=== PATIENT | female | born 1955 | race Caucasian/White ===

== ENCOUNTER 2020-01-31 06:08 | Inpatient (IN) | payer MEDICAID ==
[2020-01-31] MEDS: Nozin Nasal Sanitizer NASBOTH SCH ×3 (06:34→20:12)
[2020-01-31] MEDS ORDERED: Povidone-Iodine 10% Soln 118.25 ML Bottle ONE (06:47)
[2020-01-31] MEDS ORDERED: ceFAZolin 2 GM in Premix Bag 1 BAG IV ONE (07:15)
[2020-01-31] MEDS ORDERED: ceFAZolin 2 GM in Sodium Chloride 0.9% 100 ML IV ONE (07:15)
[2020-01-31] MEDS ORDERED: Lactated Ringers 1,000 ML IV SCH (07:15)
[2020-01-31] MEDS ORDERED: fentaNYL 100 MCG/2 ML SDV ONE ×6 (07:22→10:25)
[2020-01-31] MEDS ORDERED: Propofol 200 MG/20 ML SDV ONE ×6 (07:22→09:45)
[2020-01-31] MEDS ORDERED: Midazolam 1 MG/ML 2 ML SDV ONE ×2 (07:22→08:13)
[2020-01-31] MEDS: Tranexamic Acid 1,000 MG in Sodium Chloride 0.9% 50 ML IV ONE ×2 (08:40→13:12)
[2020-01-31] MEDS ORDERED: Lactated Ringers 1,000 ML ONE (08:59)
[2020-01-31] MEDS ORDERED: Labetalol 20 MG/4 ML Syringe ONE (09:22)
[2020-01-31] MEDS ORDERED: Acetaminophen 325 MG Tab PO PRN (10:18)
[2020-01-31] MEDS ORDERED: Morphine 2 MG/ML SYRINGE IVPUSH PRN (10:18)
[2020-01-31] MEDS ORDERED: Allopurinol 100 MG Tab PO PRN (10:24)
[2020-01-31] MEDS ORDERED: Morphine 2 MG/ML SYRINGE IVPUSH ONE (10:24)
[2020-01-31] MEDS ORDERED: Tranexamic Acid 1,000 MG in Sodium Chloride 0.9% 50 ML IV PRN (10:45)
--- NOTE | 2020-01-31 11:01 | CR ---
Knee 1V or 2V Lt CLINICAL HISTORY: Postop FINDINGS: Patient is status post left knee arthroplasty. Components appear well seated. There is intra-articular septations air Impression: Status post recent total left knee arthroplasty which appears intact
[2020-01-31] MEDS ORDERED: hydrOXYzine HCL 100 MG/2 ML SDV IM ONE (11:07)
[2020-01-31] MEDS: Ketorolac 30 MG/ML SDV IVPUSH SCH ×2 (12:06→19:58)
[2020-01-31] MEDS: Sodium Chloride 0.9% 1,000 ML IV SCH ×2 (13:43→20:39)
[2020-01-31] MEDS: ceFAZolin 1 GM in Premix Bag 1 BAG IV SCH ×2 (13:43→21:59)
[2020-01-31] MEDS: Acetaminophen/oxyCODONE 325-5 MG Tab PO PRN ×2 (15:22→19:42)
[2020-01-31] MEDS: Docusate Sodium 100 MG Cap PO SCH (20:14)
[2020-02-01] MEDS: Acetaminophen/oxyCODONE 325-5 MG Tab PO PRN ×4 (00:01→21:09)
[2020-02-01] MEDS: Ketorolac 30 MG/ML SDV IVPUSH SCH ×3 (04:13→20:11)
[2020-02-01] MEDS: ceFAZolin 1 GM in Premix Bag 1 BAG IV SCH (06:10)
[2020-02-01] MEDS: Nozin Nasal Sanitizer NASBOTH SCH ×2 (08:21→20:13)
[2020-02-01] MEDS: Docusate Sodium 100 MG Cap PO SCH ×2 (08:21→20:13)
[2020-02-01] MEDS: Enoxaparin 30 MG/0.3 ML Syringe SUBCUT SCH (08:21)
[2020-02-01] MEDS: Psyllium Husk Powder Sugar Free 5.85 GM Packet PO SCH (08:23)
[2020-02-01] MEDS: Acetaminophen/HYDROcodone 325-5 MG Tab PO PRN ×2 (13:04→17:06)
--- NOTE | 2020-02-01 18:36 | PCM.SURGPN ---
- General Info Date of Service: 02/01/20 Date of Surgery/Procedure: 01/31/20 POD#: 1 Post-Op Diagnosis: Osteoarthritis left knee Functional Status: Reports: Ambulating, Urinating - Review of Systems General: Reports: No Symptoms HEENT: Reports: No Symptoms Pulmonary: Reports: No Symptoms Cardiovascular: Reports: No Symptoms Gastrointestinal: Reports: No Symptoms Genitourinary: Reports: No Symptoms Musculoskeletal: Reports: Joint Pain, Joint Swelling Skin: Reports: No Symptoms Neurological: Reports: No Symptoms Psychiatric: Reports: No Symptoms - Patient Data Vitals - Most Recent: Last Vital Signs Temp 36.5 C 02/01/20 14:59 Pulse 95 02/01/20 14:59 Resp 18 02/01/20 14:59 BP 149/66 H 02/01/20 14:59 Pulse Ox 97 02/01/20 14:59 Weight - Most Recent: 154.221 kg I&O - Last 24 Hours: Intake & Output 02/01/20 02/01/20 02/01/20 06:59 14:59 22:59 Intake Total 1523 1145 940 Output Total 400 700 Balance 1123 445 940 Med Orders - Current: Current Medications Acetaminophen (Tylenol) 650 mg PO Q4H PRN PRN Reason: Pain/Fever Hydrocodone Bitart/Acetaminophen ([place] 325-5 Mg) 2 tab PO Q4H PRN PRN Reason: Pain (mild 1-3) Last Admin: 02/01/20 17:06 Dose: 2 tab Documented by: Allopurinol (Zyloprim) 100 mg PO DAILY PRN PRN Reason: Pain Bandage/Support Products ( Nasal Operations Administrator) 1 applic NASBOTH BID [facility] Last Admin: 02/01/20 08:21 Dose: 1 applic Documented by: Cyclobenzaprine HCl (Flexeril) 10 mg PO TID [facility] Docusate Sodium (Colace) 100 mg PO BID [facility] Last Admin: 02/01/20 08:21 Dose: 100 mg Documented by: Enoxaparin Sodium (Lovenox) 30 mg SUBCUT DAILY [facility] Last Admin: 02/01/20 08:21 Dose: 30 mg Documented by: Sodium Chloride (Normal Saline) 1,000 mls @ 125 mls/hr IV ASDIRECTED [facility] Last Admin: 01/31/20 20:39 Dose: 125 mls/hr Documented by: Ketorolac Tromethamine (Toradol) 30 mg IVPUSH Q8H [facility] Stop: 02/02/20 04:01 Last Admin: 02/01/20 11:26 Dose: 30 mg Documented by: Morphine Sulfate (Morphine) 2 mg IVPUSH Q1H PRN PRN Reason: Breakthrough Pain Oxycodone/Acetaminophen (Percocet 325-5 Mg) 1 - 2 tab PO Q4H PRN PRN Reason: Pain Last Admin: 02/01/20 08:20 Dose: 2 tab Documented by: Psyllium Husk (Metamucil Sugar Free) 1 pkt PO DAILY [facility] Last Admin: 02/01/20 08:23 Dose: 1 pkt Documented by: Discontinued Medications Fentanyl (Sublimaze) Confirm Administered Dose 100 mcg .ROUTE .STK-MED ONE Stop: 01/31/20 07:23 Fentanyl (Sublimaze) Confirm Administered Dose 100 mcg .ROUTE .STK-MED ONE Stop: 01/31/20 08:50 Fentanyl (Sublimaze) Confirm Administered Dose 100 mcg .ROUTE .STK-MED ONE Stop: 01/31/20 08:59 Fentanyl (Sublimaze) Confirm Administered Dose 100 mcg .ROUTE .STK-MED ONE Stop: 01/31/20 10:10 Fentanyl (Sublimaze) Confirm Administered Dose 100 mcg .ROUTE .STK-MED ONE Stop: 01/31/20 10:14 Fentanyl (Sublimaze) Confirm Administered Dose 100 mcg .ROUTE .STK-MED ONE Stop: 01/31/20 10:26 Hydroxyzine HCl (Vistaril) 100 mg IM ONETIME ONE Stop: 01/31/20 11:08 Last Admin: 01/31/20 11:12 Dose: 100 mg Documented by: Lactated Ringer's (Ringers, Lactated) 1,000 mls @ 75 mls/hr IV ASDIRECTED [facility] Last Admin: 01/31/20 07:39 Dose: 75 mls/hr Documented by: Cefazolin Sodium/Dextrose 2 gm (/ Premix) 50 mls @ 100 mls/hr IV ONETIME ONE Stop: 01/31/20 07:44 Last Admin: 01/31/20 07:42 Dose: 100 mls/hr Documented by: Tranexamic Acid 1,000 mg/ (Sodium Chloride) 60 mls @ 240 mls/hr IV ONETIME ONE Stop: 01/31/20 07:59 Last Admin: 01/31/20 13:12 Dose: Not Given Documented by: Tranexamic Acid 1,000 mg/ (Sodium Chloride) 60 mls @ 240 mls/hr IV ASDIRECTED PRN PRN Reason: DOSE 2 IF NEEDED PER PROVIDER Stop: 01/31/20 13:00 Lactated Ringer's (Ringers, Lactated) Confirm Administered Dose 1,000 mls @ as directed .ROUTE .STK-MED ONE Stop: 01/31/20 09:00 Cefazolin Sodium/Dextrose 1 gm (/ Premix) 50 mls @ 100 mls/hr IV Q8H JAYLYN Stop: 02/01/20 06:29 Last Admin: 02/01/20 06:10 Dose: 100 mls/hr Documented by: Labetalol HCl (Normodyne) Confirm Administered Dose 20 mg .ROUTE .STK-MED ONE Stop: 01/31/20 09:23 Midazolam HCl (Versed 1 Mg/Ml) Confirm Administered Dose 2 mg .ROUTE .STK-MED ONE Stop: 01/31/20 07:23 Midazolam HCl (Versed 1 Mg/Ml) Confirm Administered Dose 2 mg .ROUTE .STK-MED ONE Stop: 01/31/20 08:14 Morphine Sulfate (Morphine) 2 mg IVPUSH ONETIME ONE Stop: 01/31/20 10:25 Last Admin: 01/31/20 10:38 Dose: 2 mg Documented by: Povidone Iodine (Betadine 10% Soln) Confirm Administered Dose 1 ml .ROUTE .STK- MED ONE Stop: 01/31/20 06:48 Last Admin: 01/31/20 08:32 Dose: 40 ml Documented by: Propofol (Diprivan 20 Ml) Confirm Administered Dose 200 mg .ROUTE .STK-MED ONE Stop: 01/31/20 07:23 Propofol (Diprivan 20 Ml) Confirm Administered Dose 200 mg .ROUTE .STK-MED ONE Stop: 01/31/20 08:24 Propofol (Diprivan 20 Ml) Confirm Administered Dose 200 mg .ROUTE .STK-MED ONE Stop: 01/31/20 08:42 Propofol (Diprivan 20 Ml) Confirm Administered Dose 200 mg .ROUTE .STK-MED ONE Stop: 01/31/20 09:08 Propofol (Diprivan 20 Ml) Confirm Administered Dose 200 mg .ROUTE .STK-MED ONE Stop: 01/31/20 09:22 Propofol (Diprivan 20 Ml) Confirm Administered Dose 200 mg .ROUTE .STK-MED ONE Stop: 01/31/20 09:46 - Exam Wound/Incisions: Dressing Dry and Intact, No Drainage General: Alert, Oriented HEENT: Pupils Equal Neck: Supple Lungs: Clear to Auscultation, Normal Respiratory Effort Cardiovascular: Regular Rate, Regular Rhythm GI/Abdominal Exam: Normal Bowel Sounds, Soft, Non-Tender, No Distention Extremities: Joint Swelling, Limited Range of Motion Skin: Warm, Dry Neurological: No New Focal Deficit Psy/Mental Status: Alert, Normal Affect, Normal Mood Sepsis Event Note - Evaluation Sepsis Screening Result: No Definite Risk - Focused Exam Vital Signs: Vital Signs Temp Pulse Resp BP Pulse Ox 02/01/20 14:59 36.5 C 95 18 149/66 H 97 02/01/20 11:00 36.2 C 77 18 144/73 H 97 02/01/20 06:41 36.2 C 83 18 112/53 L 92 L - Problem List & Annotations (1) Status post total left knee replacement SNOMED Code(s): 0563024570674, 0414642270195 Code(s): Z96.652 - PRESENCE OF LEFT ARTIFICIAL KNEE JOINT Status: Acute Current Visit: Yes (2) Knee pain, left SNOMED Code(s): 71035947 Code(s): M25.562 - PAIN IN LEFT KNEE Status: Acute Current Visit: No Qualifiers: Chronicity: chronic (3) Primary osteoarthritis of left knee SNOMED Code(s): 317389456952958, 220127303549513 Code(s): M17.12 - UNILATERAL PRIMARY OSTEOARTHRITIS, LEFT KNEE Status: Chronic Current Visit: No - Problem List Review Problem List Initiated/Reviewed/Updated: Yes - My Orders Last 24 Hours: Active Orders 24 hr Category Date Time Status Cyclobenzaprine [Flexeril] Med 02/01/20 21:00 Active 10 mg PO TID Docusate Sodium [Colace] Med 01/31/20 21:00 Active 100 mg PO BID Enoxaparin [Lovenox] Med 02/01/20 09:00 Active 30 mg SUBCUT DAILY Psyllium Husk/Aspartame [Metamucil Sugar Free] Med 02/01/20 09:00 Active 1 pkt PO DAILY Convert IV to Peripheral Lock [Convert IV to Saline Oth 02/01/20 12:16 Ordered Lock] [OM.PC] Routine Medication Orders Acetaminophen (Tylenol) 650 mg PO Q4H PRN PRN Reason: Pain/Fever Hydrocodone Bitart/Acetaminophen ([place] 325-5 Mg) 2 tab PO Q4H PRN PRN Reason: Pain (mild 1-3) Last Admin: 02/01/20 17:06 Dose: 2 tab Documented by: Admin: 02/01/20 13:04 Dose: 2 tab Documented by: ROB Allopurinol (Zyloprim) 100 mg PO DAILY PRN PRN Reason: Pain Bandage/Support Products ( Nasal Operations Administrator) 1 applic NASBOTH BID [facility] Last Admin: 02/01/20 08:21 Dose: 1 applic Documented by: Admin: 01/31/20 20:12 Dose: 1 applic Documented by: Admin: 01/31/20 12:06 Dose: 1 applic Documented by: Admin: 01/31/20 06:34 Dose: 1 applic Documented by: RONNIE Cyclobenzaprine HCl (Flexeril) 10 mg PO TID [facility] Docusate Sodium (Colace) 100 mg PO BID [facility] Last Admin: 02/01/20 08:21 Dose: 100 mg Documented by: Admin: 01/31/20 20:14 Dose: 100 mg Documented by: LIBAN Enoxaparin Sodium (Lovenox) 30 mg SUBCUT DAILY [facility] Last Admin: 02/01/20 08:21 Dose: 30 mg Documented by: ROB Sodium Chloride (Normal Saline) 1,000 mls @ 125 mls/hr IV ASDIRECTED [facility] Last Admin: 01/31/20 20:39 Dose: 125 mls/hr Documented by: Infusion: 01/31/20 20:39 Dose: 125 mls/hr Documented by: Admin: 01/31/20 13:43 Dose: 125 mls/hr Documented by: JAZIEL Ketorolac Tromethamine (Toradol) 30 mg IVPUSH Q8H [facility] Stop: 02/02/20 04:01 Last Admin: 02/01/20 11:26 Dose: 30 mg Documented by: Admin: 02/01/20 04:13 Dose: 30 mg Documented by: Admin: 01/31/20 19:58 Dose: 30 mg Documented by: Admin: 01/31/20 12:06 Dose: 30 mg Documented by: JAZIEL Morphine Sulfate (Morphine) 2 mg IVPUSH Q1H PRN PRN Reason: Breakthrough Pain Oxycodone/Acetaminophen (Percocet 325-5 Mg) 1 - 2 tab PO Q4H PRN PRN Reason: Pain Last Admin: 02/01/20 08:20 Dose: 2 tab Documented by: Admin: 02/01/20 04:11 Dose: 2 tab Documented by: Admin: 02/01/20 00:01 Dose: 2 tab Documented by: Admin: 01/31/20 19:42 Dose: 2 tab Documented by: Admin: 01/31/20 15:22 Dose: 2 tab Documented by: JAZIEL Psyllium Husk (Metamucil Sugar Free) 1 pkt PO DAILY [facility] Last Admin: 02/01/20 08:23 Dose: 1 pkt Documented by: ROB - Assessment Assessment (Free Text/Narrative):: Tolerated procedure without complication. Some difficulty with pain control last night and today. Doing better this afternoon. Poor appetite. Dressing changed, incision looks good. - Plan Plan (Free Text/Narrative):: Flexeril added for muscle spasm. Continue PT, needs work with transfers in and out of bed. Has arranged to stay at residence with help after discharged. Plan Home Health for PT. Follow up in two weeks. Lovenox for 4 weeks for DVT prophylaxis.
[2020-02-01] MEDS: Cyclobenzaprine 10 MG Tab PO SCH (20:20)
[2020-02-02] MEDS: Acetaminophen/oxyCODONE 325-5 MG Tab PO PRN ×2 (01:57→08:03)
[2020-02-02] MEDS: Ketorolac 30 MG/ML SDV IVPUSH SCH (04:37)
[2020-02-02 07:24] VITALS: BP 122/56; PULSE 73
[2020-02-02] MEDS: Enoxaparin 30 MG/0.3 ML Syringe SUBCUT SCH (08:03)
[2020-02-02] MEDS: Nozin Nasal Sanitizer NASBOTH SCH (08:04)
[2020-02-02] MEDS: Docusate Sodium 100 MG Cap PO SCH (08:04)
[2020-02-02] MEDS: Psyllium Husk Powder Sugar Free 5.85 GM Packet PO SCH (08:04)
[2020-02-02] MEDS: Cyclobenzaprine 10 MG Tab PO SCH ×2 (08:46→13:17)
--- NOTE | 2020-02-02 10:49 | PCM.DCSUM1 ---
Discharge Summary - Hospital Course Brief History: 65-year-old female with history of severe left knee osteoarthritis and morbid obesity with a BMI greater than 50 who was admitted for elective left total knee arthroplasty. Diagnosis: Stroke: No - Discharge Data Discharge Date: 02/02/20 Discharge Disposition: Home, W Home Health Agency 06 Condition: Good - Referral to Home Health Date of Face to Face Encounter: 02/02/20 Reason for Homebound Status: s/p Left TKA Primary Care Physician: Myranda Appiah DO Skilled Need: PT - Discharge Diagnosis/Problem(s) (1) Primary osteoarthritis of left knee SNOMED Code(s): 648044134464233, 478404643712486 ICD Code: M17.12 - UNILATERAL PRIMARY OSTEOARTHRITIS, LEFT KNEE Status: Chronic Current Visit: No (2) Status post total left knee replacement SNOMED Code(s): 7727594000302, 0912602657139 ICD Code: Z96.652 - PRESENCE OF LEFT ARTIFICIAL KNEE JOINT Status: Acute Current Visit: Yes (3) Morbid obesity with BMI of 50.0-59.9, adult SNOMED Code(s): 051822654, [id number] ICD Code: E66.01 - MORBID (SEVERE) OBESITY DUE TO EXCESS CALORIES; Z68.43 - BODY MASS INDEX (BMI) 50.0-59.9, ADULT Status: Chronic Current Visit: No - Patient Summary/Data Consults: Consultations 01/31/20 10:18 Consult to Case Management/Humanities Instructor [CONS] Routine Comment: Physician Instructions: Service(s) to be Consulted: Case Management Reason for Consult: Plan for Discharge OT Evaluation and Treatment [CONS] Routine Please Evaluate and Treat. OT Reason for Consult: ADL's This query below is only for informational purposes and is not editable. PT Evaluation and Treatment [CONS] Routine Please Evaluate and Treat. PT Reason for Consult: Post op Ortho Surgery This query below is only for informational purposes and is not editable. PT Evaluation and Treatment [CONS] Routine Please Evaluate and Treat. PT Reason for Consult: Post op Ortho Surgery Knee Pending Discharge: Yes, 1- 2 days Special Instructions: Schedule first outpatient PT appointment in 3-5 day post discharge. This query below is only for informational purposes and is not editable. 02/01/20 18:37 Consult to Physician [CONS] Routine Consulting Provider: Pete Reyes Call Completed to Consulting Physician: Yes Reason for Consult: Assist with inpatient management and discharge Person Notified: Dr. Reyes Date Notified: 01/31/20 Hospital Course: Ana was admitted for an elective left total knee arthroplasty. Surgery was successful and uneventful. She had some difficulty with pain control in the immediate postop period. Pain control did eventually improve. Vital signs have all been stable. She has made excellent progress with physical therapy over the course of the hospital stay. Her pain is currently well controlled with oral medications. She will be going home with family. She has an excellent set up there with ground-level entrance and no stairs as well as plenty of equipment including a hospital bed. There have been no complications and she is done quite well from a surgical standpoint. She was interested in home physical therapy. She does have follow-up scheduled with orthopedics. - Patient Instructions Diet: Regular Diet as Tolerated Activity: As Tolerated, Full Weight Bearing Driving: Do Not Drive (if taking pain pills or muscle relaxers ) Showering/Bathing: May Shower, No Tub Bathing/Swimming Wound/Incision Care: Keep Operative Site/Wound Site Clean and Dry (cover daily with ABD dressing to keep incision clean and dry ) Notify Provider of: Fever, Increased Pain, Swelling and Redness, Drainage Other/Special Instructions: 1. You were in the hospital for surgical management of left knee osteoarthritis. I have sent a prescription for oxycodone/acetaminophen to help with pain control after hospital discharge. You have been using 2 tablets to help control your pain here but as your pain improves you may decrease down to 1 tablets. You may take these every 4 hours as needed for pain. 2. To help reduce the risk of blood clots I recommend that you inject 30 mg of enoxaparin underneath the skin on your abdomen once daily for 28 days. 3. Narcotic pain medications can lead to constipation so I would recommend that you use a stool softener twice daily while you are taking the pain pills. As your pain improves and you need less pain medication you can taper this medication down to once daily and then stop. 4. Please keep the incision on your left knee clean and dry. You may cover this with a dressing and secure with tape during the day. It is okay to have the dressing off at night if this is more comfortable. You may shower but should not swim in the lutz or bathe in the tub. 5. You will be going home with the remaining supply of the Nozin. You should take this as directed until the supply is depleted. This will be approximately 1 week. 6. I have placed a referral to home health services. They will provide a physical therapist at home to help ease your transition home from the hospital following surgery. - Discharge Plan *PRESCRIPTION DRUG MONITORING PROGRAM REVIEWED*: Not Applicable *COPY OF PRESCRIPTION DRUG MONITORING REPORT IN PATIENT CARLIN: Not Applicable Prescriptions/Med Rec: Cyclobenzaprine [Flexeril] 10 mg PO TID PRN #20 tablet PRN Reason: Muscle Spasm Enoxaparin [Lovenox] 30 mg SUBCUT DAILY #28 syringe Acetaminophen/oxyCODONE [Percocet 325-5 MG] 1 - 2 tab PO Q4H PRN #42 tablet PRN Reason: Pain Docusate Sodium/Sennosides [Senna Plus] 1 each PO BID #45 tab Home Medications: Home Meds Allopurinol [Zyloprim] 100 mg PO DAILY PRN 10/28/16 [History] Multivitamin [Multivitamins] 1 tab PO DAILY 10/28/16 [History] Calcium Citrate/Vitamin D3 [Calcium Citrate - Vit D Caplet] 1 tab PO BID 01/27/20 [History] Clindamycin HCl 300 mg PO TID 01/31/20 [History] Psyllium Husk (With Sugar) [Fiber Therapy Powder] 60 ml PO DAILY 01/31/20 [History] Acetaminophen/oxyCODONE [Percocet 325-5 MG] 1 - 2 tab PO Q4H PRN #42 tablet 02/02/20 [Rx] Cyclobenzaprine [Flexeril] 10 mg PO TID PRN #20 tablet 02/02/20 [Rx] Docusate Sodium/Sennosides [Senna Plus] 1 each PO BID #45 tab 02/02/20 [Rx] Enoxaparin [Lovenox] 30 mg SUBCUT DAILY #28 syringe 02/02/20 [Rx] Nozin [ Nasal Core Shaper Top] 1 applic NASBOTH BID buddy 02/02/20 [Rx] Oxygen Therapy Mode: Room Air Patient Handouts: Oxycodone tablets or capsules, Total Knee Replacement, Care After Referrals: Huy Hirsch MD [Physician] - 02/15/20 10:30 am - Discharge Summary/Plan Comment DC Time >30 min.: Yes (40-setting up home care and reviewing discharge medications) - Patient Data Vitals - Most Recent: Last Vital Signs Temp 36.6 C 02/02/20 07:21 Pulse 73 02/02/20 07:21 Resp 18 02/02/20 07:21 BP 122/56 L 02/02/20 07:21 Pulse Ox 94 L 02/02/20 07:21 Weight - Most Recent: 154.221 kg I&O - Last 24 hours: Intake & Output 02/01/20 02/02/20 02/02/20 22:59 06:59 14:59 Intake Total 940 540 Balance 940 540 Med Orders - Current: Current Medications Acetaminophen (Tylenol) 650 mg PO Q4H PRN PRN Reason: Pain/Fever Hydrocodone Bitart/Acetaminophen ([place] 325-5 Mg) 2 tab PO Q4H PRN PRN Reason: Pain (mild 1-3) Last Admin: 02/01/20 17:06 Dose: 2 tab Documented by: Allopurinol (Zyloprim) 100 mg PO DAILY PRN PRN Reason: Pain Bandage/Support Products ( Nasal Core Shaper Top) 1 applic NASBOTH BID [facility] Last Admin: 02/02/20 08:04 Dose: 1 applic Documented by: Cyclobenzaprine HCl (Flexeril) 10 mg PO TID [facility] Last Admin: 02/02/20 08:46 Dose: 10 mg Documented by: Docusate Sodium (Colace) 100 mg PO BID [facility] Last Admin: 02/02/20 08:04 Dose: 100 mg Documented by: Enoxaparin Sodium (Lovenox) 30 mg SUBCUT DAILY [facility] Last Admin: 02/02/20 08:03 Dose: 30 mg Documented by: Sodium Chloride (Normal Saline) 1,000 mls @ 125 mls/hr IV ASDIRECTED [facility] Last Admin: 01/31/20 20:39 Dose: 125 mls/hr Documented by: Morphine Sulfate (Morphine) 2 mg IVPUSH Q1H PRN PRN Reason: Breakthrough Pain Oxycodone/Acetaminophen (Percocet 325-5 Mg) 1 - 2 tab PO Q4H PRN PRN Reason: Pain Last Admin: 02/02/20 08:03 Dose: 2 tab Documented by: Psyllium Husk (Metamucil Sugar Free) 1 pkt PO DAILY [facility] Last Admin: 02/02/20 08:04 Dose: 1 pkt Documented by: Discontinued Medications Fentanyl (Sublimaze) Confirm Administered Dose 100 mcg .ROUTE .STK-MED ONE Stop: 01/31/20 07:23 Fentanyl (Sublimaze) Confirm Administered Dose 100 mcg .ROUTE .STK-MED ONE Stop: 01/31/20 08:50 Fentanyl (Sublimaze) Confirm Administered Dose 100 mcg .ROUTE .STK-MED ONE Stop: 01/31/20 08:59 Fentanyl (Sublimaze) Confirm Administered Dose 100 mcg .ROUTE .STK-MED ONE Stop: 01/31/20 10:10 Fentanyl (Sublimaze) Confirm Administered Dose 100 mcg .ROUTE .STK-MED ONE Stop: 01/31/20 10:14 Fentanyl (Sublimaze) Confirm Administered Dose 100 mcg .ROUTE .STK-MED ONE Stop: 01/31/20 10:26 Hydroxyzine HCl (Vistaril) 100 mg IM ONETIME ONE Stop: 01/31/20 11:08 Last Admin: 01/31/20 11:12 Dose: 100 mg Documented by: Lactated Ringer's (Ringers, Lactated) 1,000 mls @ 75 mls/hr IV ASDIRECTED [facility] Last Admin: 01/31/20 07:39 Dose: 75 mls/hr Documented by: Cefazolin Sodium/Dextrose 2 gm (/ Premix) 50 mls @ 100 mls/hr IV ONETIME ONE Stop: 01/31/20 07:44 Last Admin: 01/31/20 07:42 Dose: 100 mls/hr Documented by: Tranexamic Acid 1,000 mg/ (Sodium Chloride) 60 mls @ 240 mls/hr IV ONETIME ONE Stop: 01/31/20 07:59 Last Admin: 01/31/20 13:12 Dose: Not Given Documented by: Tranexamic Acid 1,000 mg/ (Sodium Chloride) 60 mls @ 240 mls/hr IV ASDIRECTED PRN PRN Reason: DOSE 2 IF NEEDED PER PROVIDER Stop: 01/31/20 13:00 Lactated Ringer's (Ringers, Lactated) Confirm Administered Dose 1,000 mls @ as directed .ROUTE .STK-MED ONE Stop: 01/31/20 09:00 Cefazolin Sodium/Dextrose 1 gm (/ Premix) 50 mls @ 100 mls/hr IV Q8H JAYLYN Stop: 02/01/20 06:29 Last Admin: 02/01/20 06:10 Dose: 100 mls/hr Documented by: Ketorolac Tromethamine (Toradol) 30 mg IVPUSH Q8H JAY[facility]N Stop: 02/02/20 04:01 Last Admin: 02/02/20 04:37 Dose: 30 mg Documented by: Labetalol HCl (Normodyne) Confirm Administered Dose 20 mg .ROUTE .STK-MED ONE Stop: 01/31/20 09:23 Midazolam HCl (Versed 1 Mg/Ml) Confirm Administered Dose 2 mg .ROUTE .STK-MED ONE Stop: 01/31/20 07:23 Midazolam HCl (Versed 1 Mg/Ml) Confirm Administered Dose 2 mg .ROUTE .STK-MED ONE Stop: 01/31/20 08:14 Morphine Sulfate (Morphine) 2 mg IVPUSH ONETIME ONE Stop: 01/31/20 10:25 Last Admin: 01/31/20 10:38 Dose: 2 mg Documented by: Povidone Iodine (Betadine 10% Soln) Confirm Administered Dose 1 ml .ROUTE .STK- MED ONE Stop: 01/31/20 06:48 Last Admin: 01/31/20 08:32 Dose: 40 ml Documented by: Propofol (Diprivan 20 Ml) Confirm Administered Dose 200 mg .ROUTE .STK-MED ONE Stop: 01/31/20 07:23 Propofol (Diprivan 20 Ml) Confirm Administered Dose 200 mg .ROUTE .STK-MED ONE Stop: 01/31/20 08:24 Propofol (Diprivan 20 Ml) Confirm Administered Dose 200 mg .ROUTE .STK-MED ONE Stop: 01/31/20 08:42 Propofol (Diprivan 20 Ml) Confirm Administered Dose 200 mg .ROUTE .STK-MED ONE Stop: 01/31/20 09:08 Propofol (Diprivan 20 Ml) Confirm Administered Dose 200 mg .ROUTE .STK-MED ONE Stop: 01/31/20 09:22 Propofol (Diprivan 20 Ml) Confirm Administered Dose 200 mg .ROUTE .STK-MED ONE Stop: 01/31/20 09:46
[2020-02-02] MEDS ORDERED: Acetaminophen/oxyCODONE 325-5 MG Tab PO PRN (13:09)
[2020-02-02] MEDS ORDERED: Acetaminophen 325 MG Tab PO PRN (13:15)
[2020-02-02] MEDS ORDERED: Acetaminophen/HYDROcodone 325-5 MG Tab PO PRN (13:15)
[2020-02-02] MEDS ORDERED: Morphine 2 MG/ML SYRINGE IVPUSH PRN (13:19)
--- NOTE | 2020-02-17 11:06 | OR ---
DATE OF PROCEDURE: 01/31/2020 SURGEON: Huy Hirsch MD PREOPERATIVE DIAGNOSIS: Osteoarthritis, left knee. POSTOPERATIVE DIAGNOSIS: Osteoarthritis, left knee. PROCEDURE: Left total knee arthroplasty using John Persona components with a size 8 femur, E tibia, 10 mm polyethylene and 35 mm patella. ANESTHESIA: Spinal with sedation. INDICATIONS: Ana is a 65-year-old female with a history of progressive left knee pain for the past several months. X-rays examination consistent with end-stage osteoarthritis of the left knee. She now presents for left total knee arthroplasty. Risks, benefits, potential complications of the procedure were discussed. PROCEDURE IN DETAIL: After adequate anesthesia was obtained, patient was placed supine with a tourniquet about the left upper thigh. Left leg was prepped and draped in a sterile fashion. Leg was exsanguinated and tourniquet inflated to 300 mmHg pressure. An anterior incision was made and carried down through the subcutaneous tissues and a medial parapatellar arthrotomy was completed. A portion of the fat pad was excised. Significant degenerative changes noted in the patellofemoral joint and throughout the knee. The posterior aspect of the patella was resected with an oscillating saw. The knee was flexed, and the intramedullary canal of the femur was drilled. Intramedullary guide was placed and distal femoral cut was then made. Attention is turned to the tibia. Extramedullary alignment jig was placed, aligned and secured. The proximal tibia was resected. This was removed along with the medial and lateral menisci. Knee was then flexed and the femur was sized to a size 8 component. The cutting jig was secured and remaining femoral cuts were made including an intercondylar notch cut for a posterior cruciate sacrificing component. The tibia was then sized to an E and trial baseplate was placed. Secured with small pins. Intramedullary canal was drilled and pins were cut. Knee was trialed with a 10 mm insert providing good balance in flexion and extension. Patella tracked well with no lateral release with a 35 mm button. Trial components were removed. The knee was thoroughly irrigated with pulse lavage. The bone surfaces were dried and components were cemented in place. Excess cement was removed and the knee was held in full extension with a 10 mm trial insert as the cement cured. Knee was again taken through range of motion, found to have good balance in flexion and extension with full extension. The trial was removed and the final polyethylene was positioned. Knee was irrigated with pulse lavage. This was followed by irrigation with dilute Betadine solution, which was left for 2-1/2 minutes and then irrigated once again with the pulse lavage. The capsule was closed with #2 Ethibond in interrupted fashion. Skin was closed with 2-0 Vicryl and a running 3-0 Monocryl and Steri-Strips were applied. Light compressive dressing was then placed. The patient tolerated the procedure very well. There were no complications, taken from the operating room in stable condition. Huy Hirsch MD /[id number]
== END 2020-02-02 15:42 | disposition home health service (06) | DRG 470 ==
LOC: JP.SDS 06:08 → JP.MS 10:18 → JP.SDS 02-01 12:00
PROVIDERS: ADMIT Specialist; ATTEND Specialist
PROC: 0SRD0J9 Replacement of Left Knee Joint with Synthetic Substitute, Cemented, Open Approach (ICD-10-PCS; principal; 2020-02-01)
DX: M17.12 Unilateral primary osteoarthritis, left knee (principal); Z68.43 Body mass index [BMI] 50.0-59.9, adult; E66.01 Morbid (severe) obesity due to excess calories; I10 Essential (primary) hypertension; Z79.52 Long term (current) use of systemic steroids; Z79.899 Other long term (current) drug therapy; Z88.1 Allergy status to other antibiotic agents; Z88.8 Allergy status to other drugs, medicaments and biological substances
CPT/HCPCS: 36415; 73560-26-LT; 73560-LT; 80053; 85027; 86850; 86900; 86901; 97110-GP; 97116-GP; 97162-GP; 99238; A9270-GY; C1713; C1776; J0690; J1650; J1885; J2250; J2270; J2704; J3010; J3410; J3490; J7030; J7050; J7120

== ENCOUNTER 2020-04-22 15:57 | Emergency (ER) | payer MEDICAID ==
--- NOTE | 2020-04-22 16:57 | EDM.PDOC ---
ED HPI GENERAL MEDICAL PROBLEM - General Chief Complaint: Respiratory Problem Stated Complaint: HAD COVID/PNEMONIA Time Seen by Provider: 04/22/20 16:34 Source of Information: Reports: Patient History Limitations: Reports: No Limitations - History of Present Illness INITIAL COMMENTS - FREE TEXT/NARRATIVE: 65-year-old female who was diagnosed with COVID-19 a month ago, continues to have some intermittent wheezing, fatigue, and lack of energy and talk to a phone nurse today who recommended she come to the emergency room for a "chest x-ray". During the course of her recovery, she did develop a pneumonia and has been on 2 courses of antibiotics, Zithromax and cefdinir. She is not running fevers, no nausea or vomiting, still has some chest soreness from coughing. Onset: Gradual Duration: Week(s): (Symptoms have been ongoing for 4 weeks) Associated Symptoms: Reports: Chest Pain (With coughing), Cough (Nonproductive), Malaise, Shortness of Breath (Especially with activity), Weakness. Denies: Nausea/Vomiting - Related Data Allergies Allergy/AdvReac Type Severity Reaction Status Date / Time doxycycline Allergy Cannot Verified 04/22/20 16:32 Remember amoxicillin [From Augmentin] AdvReac Stomach Verified 04/22/20 16:32 Upset clavulanic acid AdvReac Stomach Verified 04/22/20 16:32 [From Augmentin] Upset Home Meds: Home Meds Allopurinol [Zyloprim] 100 mg PO DAILY PRN 10/28/16 [History] Multivitamin [Multivitamins] 1 tab PO DAILY 10/28/16 [History] Psyllium Husk (With Sugar) [Fiber Therapy Powder] 60 ml PO DAILY 01/31/20 [History] Past Medical History HEENT History: Reports: Allergic Rhinitis, Sinusitis Cardiovascular History: Reports: SOB on Exertion Respiratory History: Reports: Bronchitis, Recurrent, Other (See Below) Other Respiratory History: hx of covid [employer]ACILITY [employer]ITY [employer]ICER History: Reports: Musculoskeletal History: Reports: Arthritis, Back Pain, Chronic, Other (See Below) Other Musculoskeletal History: L knee pain Neurological History: Reports: Head Trauma Endocrine/Metabolic History: Reports: Obesity/BMI 30+ Hematologic History: Reports: Blood Transfusion(s) Dermatologic History: Reports: Eczema - Infectious Disease History Infectious Disease History: Reports: Chicken Pox - Past Surgical History Head Surgeries/Procedures: Reports: None HEENT Surgical History: Reports: Adenoidectomy, Oral Surgery, Tonsillectomy Musculoskeletal Surgical History: Reports: Knee Replacement, Other (See Below) Other Musculoskeletal Surgeries/Procedures:: L TKA 01/31/2020 Social & Family History - Family History Family Medical History: Unobtainable - Tobacco Use Tobacco Use Status *Q: Never Tobacco User - Caffeine Use Caffeine Use: Reports: Coffee - Recreational Drug Use Recreational Drug Use: No ED ROS GENERAL - Review of Systems Review Of Systems: See Below Constitutional: Reports: Malaise. Denies: Fever, Chills HEENT: Denies: Throat Pain Respiratory: Reports: Shortness of Breath (With activity), Wheezing Cardiovascular: Reports: Chest Pain (From coughing, anterior chest wall pain) GI/Abdominal: Reports: No Symptoms Skin: Reports: No Symptoms Neurological: Reports: Weakness ED EXAM, GENERAL - Physical Exam Exam: See Below Free Text/Narrative:: Patient appears comfortable, breathing is shallow and unlabored and O2 sats 98%. She is afebrile. Exam Limited By: No Limitations General Appearance: Alert, No Apparent Distress Head: Atraumatic Respiratory/Chest: No Respiratory Distress, Other (Right lung is completely clear, left lung has a few expiratory wheezes but overall good air movement) Neurological: Alert, Oriented Psychiatric: Normal Affect, Normal Mood Skin Exam: Warm, Dry Course - Vital Signs Last Recorded V/S: Last Vital Signs Temp 98.4 F 04/22/20 16:24 Pulse 74 04/22/20 17:06 Resp 18 04/22/20 16:42 BP 179/87 H 04/22/20 17:06 Pulse Ox 97 04/22/20 17:06 - Orders/Labs/Meds Orders: Active Orders 24 hr Category Date Time Status Chest 2V [CR] Routine Exams 04/22/20 16:50 Taken - Re-Assessments/Exams Free Text/Narrative Re-Assessment/Exam: 04/22/20 16:57 A 2 view chest x-ray was obtained. 04/22/20 17:28 Chest x-ray shows very minimal possible infiltrate of the lower lobes bilaterally, somewhat worse on the left than right. Reading the report from the clinic chest x-ray a few weeks ago, it sounds much improved. I recommended she use her inhaler as needed, but I do not recommend another round of antibiotics or steroids. She can return anytime if worsening such as increasing shortness of breath or fever. Departure - Departure Time of Disposition: 17:57 Disposition: Home, Self-Care 01 Clinical Impression: Bronchitis due to 2019 novel coronavirus - Discharge Information Instructions: COVID-19 Referrals: Myranda Appiah DO [Primary Care Provider] - Forms: ED Department Discharge Care Plan Goals: Continue increasing activity as tolerated and use your inhaler for shortness of breath especially when active. Recheck next week as scheduled, and return anytime if worsening such as fever, increasing shortness of breath or pain. Sepsis Event Note (ED) - Evaluation Sepsis Screening Result: No Definite Risk - My Orders Last 24 Hours: My Active Orders 04/22/20 16:50 Chest 2V [CR] Routine - Assessment/Plan Last 24 Hours: My Active Orders 04/22/20 16:50 Chest 2V [CR] Routine
[2020-04-22 17:06] VITALS: BP 179/87; PULSE 74
--- NOTE | 2020-04-24 09:50 | CR ---
CHEST: 2 view CLINICAL HISTORY:Dyspnea COMPARISON:None FINDINGS: The heart size, pulmonary vascularity and hilar structures are normal. No infiltrate effusion or pneumothorax is seen. There is some minimal patchy bibasal density which may represent some atelectasis. IMPRESSION: Minimal patchy bibasal airspace disease may represent some subsegmental atelectasis.
== END 2020-04-22 17:57 | disposition home or self-care (01) ==
LOC: JP.ED 15:57
DX: U07.1 COVID-19 (principal); J40 Bronchitis, not specified as acute or chronic; M19.90 Unspecified osteoarthritis, unspecified site; E66.9 Obesity, unspecified; Z68.43 Body mass index [BMI] 50.0-59.9, adult; Z88.1 Allergy status to other antibiotic agents
CPT/HCPCS: 71046; 71046-26; 99284-25